=== PATIENT | female | born 1970 | race Caucasian/White ===

== ENCOUNTER 2019-04-04 11:25 | Inpatient (IN) | payer OTHER ==
[~2019-04-04] VITALS: Ht 180.3 cm; Wt 67.1 kg
[2019-04-04] MEDS ORDERED: SODIUM CHLORIDE FLUSH 10ML SYR IVF ONE (12:00)
[2019-04-04 12:30] LABS: BASOPHILS # (AUTO) 0.04 x10^3/uL (0-0.1); BASOPHILS % (AUTO) 1 % (0-1); EOSINOPHILS # (AUTO) 0.05 x10^3/uL (0-0.4); EOSINOPHILS % (AUTO) 1 % (1-7); LYMPHOCYTES % (AUTO) 28 % (22-44); MD NO; MEAN CORPUSCULAR HEMOGLOBIN 30.2 pg (27.0-34.8); MEAN CORPUSCULAR HGB CONC 32.1 g/dL (32.4-35.8); MEAN CORPUSCULAR VOLUME 94.1 fL (80-100); MEAN PLATELET VOLUME 7.9 fL (7.4-10.4); MONOCYTES # (AUTO) 0.32 x10^3/uL (0.2-0.8); MONOCYTES % (AUTO) 6 % (2-9); NEUTROPHILS # (AUTO) 3.22 x10^3/uL (1.8-6.8); NEUTROPHILS % (AUTO) 64 % (42-75); PLATELET COUNT 319 x10^3/uL (130-400); RED BLOOD COUNT 4.75 x10^6/uL (3.82-5.3); RED CELL DISTRIBUTION WIDTH 13.9 % (9.6-15.2)
[2019-04-04] MEDS ORDERED: LORazepam 2 MG/ML, 1ML ONE (12:38)
[2019-04-04 12:39] LABS: ALANINE AMINOTRANSFERASE 34 U/L (12-78); ALBUMIN 4.1 g/dL (3.4-5.0); ANION GAP 7 mmol/L (5-15); CALCIUM 8.9 mg/dL (8.5-10.1); CHLORIDE 110 mmol/L (98-107); CREATININE 0.73 mg/dL (0.55-1.02)
[2019-04-04 12:44] LABS: ALKALINE PHOSPHATASE 82 U/L (45-117); BILIRUBIN,TOTAL 0.3 mg/dL (0.2-1.0); TOTAL PROTEIN 7.9 g/dL (6.4-8.2); TROPONIN I < 0.015 ng/mL (0.000-0.045)
--- NOTE | 2019-04-04 12:47 | NUR ---
Provided medication per [facility]. BLANCO. Pt connected to NIBP, continous pulse ox, and cardiac rehab nurse. Both bedrails up for safety measures. Call light within reach. No needs expressed. Spouse at bedside.
[2019-04-04] MEDS ORDERED: LORazepam 2 MG/ML, 1ML IVPush ONE (13:00)
[2019-04-04 13:02] LABS: HCT (SEDRATE) 44.7 % (34.6-47.8)
[2019-04-04] MEDS ORDERED: OMNIPAQUE 350 MG/ML, 100ML BOTTLE ONE (13:30)
[2019-04-04 14:00] VITALS: BP 137/91
--- NOTE | 2019-04-04 14:20 | NUR ---
RETURNED FROM MRI
[2019-04-04] MEDS ORDERED: ASPIRIN 325 MG TABLET PO ONE (15:00)
[2019-04-04 15:25] LABS: MICROSCOPIC AUTO
--- NOTE | 2019-04-04 15:25 | NUR ---
Provided report to [facility]. All questions answered. Pt ready to transfer to floor from ED.
[2019-04-04 15:29] LABS: CULTURE INDICATED? YES
[2019-04-04] MEDS ORDERED: POLYETHYLENE GLYCOL 17 GM PACKET PO PRN (15:30)
[2019-04-04] MEDS ORDERED: ENALAPRILAT 1.25 MG/ML, 2ML IV PRN (15:30)
[2019-04-04] MEDS ORDERED: GUAIFENESIN/DM 200-20MG, 10ML UDC PO PRN (15:30)
[2019-04-04] MEDS ORDERED: SENNA/DOCUSATE TABLET PO PRN (15:30)
[2019-04-04] MEDS ORDERED: ACETAMINOPHEN 650 MG/20.3 ML UDC PO PRN (15:30)
[2019-04-04] MEDS ORDERED: DOCUSATE 100 MG CAPSULE PO PRN (15:30)
[2019-04-04] MEDS ORDERED: ONDANSETRON 4 MG TABLET PO PRN (15:30)
--- NOTE | 2019-04-04 15:55 | NUR ---
Pt transfered to floor on [facility] and left with all personal belongings.
[2019-04-04 16:19] LABS: HEMOGLOBIN A1C 5.4 % (4.2-6.3)
[2019-04-04 16:32] LABS: AMPHETAMINE SCREEN, URINE Negative (Negative); BARBITURATE SCREEN, URINE Negative (Negative); BENZODIAZEPINE SCREEN, URINE Negative (Negative); CANNABINOID SCREEN, URINE Negative (Negative); COCAINE SCREEN, URINE Negative (Negative); METHADONE SCREEN, URINE Negative (Negative); OPIATE SCREEN, URINE Negative (Negative)
[2019-04-04 16:46] VITALS: BP 137/91
[2019-04-04 19:00] VITALS: BP 128/91
[2019-04-04] MEDS ORDERED: ATORVASTATIN 80 MG TABLET PO SCH (21:00)
[2019-04-04 22:24] VITALS: BP 147/96
[2019-04-05 00:03] VITALS: BP 134/88
[2019-04-05 02:05] VITALS: BP 121/81
[2019-04-05 04:10] VITALS: BP 114/75
[2019-04-05 05:55] LABS: CHOL/HDL RATIO 4.8; LDL/HDL RATIO 2.8 (0.5-3.0)
[2019-04-05 05:57] VITALS: BP 130/85
[2019-04-05 08:17] VITALS: BP 124/86
[2019-04-05] MEDS ORDERED: ASPIRIN 81 MG TABLET CHEW PO/NG SCH (09:00)
[2019-04-05 13:25] VITALS: BP 132/95
[2019-04-05] MEDS ORDERED: ASPI-515 PO (15:40)
[2019-04-05] MEDS ORDERED: ATOR-2 PO (15:40)
== END 2019-04-05 17:10 | disposition home or self-care (01) | DRG 66 ==
LOC: ED 12:40 → EDIP 15:04 → 4WST 15:45 → DCLOUNGE 04-05 16:50
PROVIDERS: ADMIT Internal Medicine; ATTEND Internal Medicine
DX: I63.9 Cerebral infarction, unspecified (principal); E78.00 Pure hypercholesterolemia, unspecified; I10 Essential (primary) hypertension; H53.2 Diplopia; R29.704 NIHSS score 4
CPT/HCPCS: 36415; 70450; 70496; 70498; 70551; 80053; 80061; 80307; 81001; 82962; 83036; 84443; 84484; 85025; 85651; 87086; 93005; 93306; 96374; 99285; G0378; Q9967; 92523-GN; J2060